=== PATIENT | female | born 1990 | race Caucasian/White ===

== ENCOUNTER → 2018-09-14 | Outpatient (CLI) | payer BC ==
--- NOTE | 2018-09-14 13:57 | KCIC ---
ABDOMEN LTD History: Right upper quadrant abdominal pain Comparison: None. Findings: Multiple sonographic images of the abdomen are submitted. There is coarsening of the hepatic echotexture. Right lobe of the liver measured 18.1 cm longitudinal. There is no abnormality in the region of pancreas although pancreas poorly visualized on this exam due to bowel gas. Gallbladder is present without wall thickening or pericholecystic fluid. However there are large gallstones present with the largest about 2.2 cm, also gallbladder sludge. Common bile duct is within normal limits at 0.2 cm. There is segmental visualization of the inferior vena cava. Right kidney measured 11.7 x 5.5 x 4.4 cm, no hydronephrosis. Visualized abdominal aortic caliber is within normal limits about 1.4 cm. Impression: 1. There is cholelithiasis and gallbladder sludge, no gallbladder wall thickening or biliary ductal dilatation. 2. There is hepatic steatosis. Electronically signed by: Williams Nuñez MD (09/14/2018 1:54 PM) [id number]
== END | disposition home or self-care (01) ==
LOC: KCIC US 13:02
PROVIDERS: ATTEND Obstetrics & Gynecology
DX: K80.20 Calculus of gallbladder without cholecystitis without obstruction (principal); K76.0 Fatty (change of) liver, not elsewhere classified
CPT/HCPCS: 76705